=== PATIENT | female | born 1995 | race Caucasian/White ===

== ENCOUNTER 2016-12-30 14:40 | Emergency (ER) | payer SELFPAY ==
[~2016-12-30] VITALS: Ht 162.6 cm; Wt 88.8 kg
[2016-12-30] MEDS ORDERED: PRENATAL TABLE1 EAC3 PO (15:58)
[2016-12-30 17:34] LABS: HEMATOCRIT 36.4 % (36.0-46.0); MCH 30.5 PG (29.0-34.0); MCHC 34.6 G/DL (30.0-36.0); MCV 88.1 FL (83-99); MEAN PLAT.VOLUME 11.3 uM^3 (9.5-12.4); PLATELET COUNT 259 K/uL (156-360); RBC DIS.WIDTH-CV 12.7 % (11.8-14.6); RBC DIS.WIDTH-SD 40.9 % (39-53); RED BLOOD COUNT 4.13 M/uL (3.80-5.20)
[2016-12-30 17:39] LABS: ADD MIUA? NO; BILIRUBIN NEGATIVE; BLOOD NEGATIVE; COLOR YELLOW ((YELLOW)); GLUCOSE (STRIP) NEGATIVE; KETONES 20; LEUKOCYTES NEGATIVE; NITRITE NEGATIVE; PROTEIN (STRIP) NEGATIVE; SPECIFIC GRAVITY 1.011 (1.000-1.030); UCUL ADDED? NO; UROBILINOGEN 0.2 MG/DL (0.2-1.0)
[2016-12-30 17:49] LABS: CHLORIDE 105 mEq/L (99-109); POTASSIUM 3.7 mEq/L (3.7-5.4); SODIUM 139 mEq/L (136-147)
[2016-12-30 17:51] LABS: GLUCOSE 77 mg/dL (70-99)
[2016-12-30 17:52] LABS: ANION GAP 10 MEQ/L (2-14)
[2016-12-30 17:53] LABS: TOTAL BILIRUBIN 0.3 mg/dL (0.0-1.0)
[2016-12-30 17:54] LABS: ALKALINE PHOSPHATASE 67 IU/L (3-129)
[2016-12-30 17:55] LABS: GFR ESTIMATE (CALCULATED) > 59 mL/min/
[2016-12-30 17:56] LABS: UREA NITROGEN (BUN) 5 mg/dL (9-23)
[2016-12-30 18:23] LABS: QUANTITATIVE HCG 74617.4 MIU/ML
[2016-12-30 18:45] VITALS: BP 136/77
== END 2016-12-30 18:46 | disposition home or self-care (01) ==
LOC: EME 14:40 → RME 14:40
PROVIDERS: Physician Assistant
DX: O20.8 Other hemorrhage in early pregnancy (principal); O99.511 Diseases of the respiratory system complicating pregnancy, first trimester; J06.9 Acute upper respiratory infection, unspecified; O21.9 Vomiting of pregnancy, unspecified; R42 Dizziness and giddiness; Z3A.12 12 weeks gestation of pregnancy
CPT/HCPCS: 76801; 80053; 81003; 84702; 85027; 99281; 99283

== ENCOUNTER 2017-01-26 16:26 | Emergency (ER) | payer SELFPAY ==
[~2017-01-26] VITALS: Ht 162.6 cm; Wt 88.4 kg
[~2017-01-26 16:26] MED LIST: PRENATAL TABLE1 EAC3 PO
[2017-01-26 18:51] LABS: HEMATOCRIT 34.6 % (36.0-46.0); MCH 30.5 PG (29.0-34.0); MCHC 34.7 G/DL (30.0-36.0); MEAN PLAT.VOLUME 11.1 uM^3 (9.5-12.4); PLATELET COUNT 191 K/uL (156-360); RBC DIS.WIDTH-CV 13.3 % (11.8-14.6); RBC DIS.WIDTH-SD 43.6 % (39-53); RED BLOOD COUNT 3.93 M/uL (3.80-5.20); WHITE BLOOD COUNT 8.6 K/uL (4.1-10.2)
[2017-01-26 18:59] LABS: ADD MIUA? YES; BILIRUBIN NEGATIVE; BLOOD NEGATIVE; COLOR YELLOW ((YELLOW)); GLUCOSE (STRIP) NEGATIVE; KETONES 20; LEUKOCYTES NEGATIVE; NITRITE NEGATIVE; PROTEIN (STRIP) NEGATIVE; SPECIFIC GRAVITY 1.006 (1.000-1.030); UROBILINOGEN 0.2 MG/DL (0.2-1.0)
[2017-01-26 18:59] LABS: CHLORIDE 101 mEq/L (99-109); POTASSIUM 3.5 mEq/L (3.7-5.4); SODIUM 133 mEq/L (136-147)
[2017-01-26 19:01] LABS: GLUCOSE 83 mg/dL (70-99)
[2017-01-26 19:03] LABS: ANION GAP 11 MEQ/L (2-14)
[2017-01-26 19:05] LABS: GFR ESTIMATE (CALCULATED) > 59 mL/min/
[2017-01-26 19:06] LABS: UREA NITROGEN (BUN) 5 mg/dL (9-23)
[2017-01-26 19:13] LABS: BACTERIA RARE /HPF; EPITHELIAL CELLS 2+ /HPF; MUCUS NONE SEEN /LPF; RED BLOOD CELLS 0-5 /HPF (0-5); UCUL ADDED? NO; WHITE BLOOD CELLS 0-5 /HPF (0-5)
[2017-01-26 19:32] LABS: QUANTITATIVE HCG 35902.4 MIU/ML
[2017-01-26 19:53] LABS: TROP-I INTERPRETATION NEGATIVE; TROPONIN-I < 0.01 ng/mL (0.0-0.30)
[2017-01-26 22:23] VITALS: BP 123/82
== END 2017-01-26 22:29 | disposition home or self-care (01) ==
LOC: EME 16:26 → RME 16:26
PROVIDERS: Physician Assistant
DX: O99.512 Diseases of the respiratory system complicating pregnancy, second trimester (principal); J06.9 Acute upper respiratory infection, unspecified; O26.892 Other specified pregnancy related conditions, second trimester; R00.0 Tachycardia, unspecified; Z3A.15 15 weeks gestation of pregnancy; J45.909 Unspecified asthma, uncomplicated
CPT/HCPCS: 71020; 71275; 80048; 81003; 84484; 84702; 85027; 85379; 93005; 99281; 99285; J2405; J7030

== ENCOUNTER 2017-05-20 14:51 | Outpatient (CLI) | payer SELFPAY ==
[~2017-05-20] VITALS: Ht 162.6 cm; Wt 90.7 kg
[2017-05-20 15:26] VITALS: BP 119/76
[2017-05-20 15:58] LABS: APPEARANCE SL.HAZY ((CLEAR)); BILIRUBIN NEGATIVE; BLOOD NEGATIVE; COLOR YELLOW ((YELLOW)); GLUCOSE (STRIP) NEGATIVE; KETONES NEGATIVE; LEUKOCYTES NEGATIVE; NITRITE NEGATIVE; PROTEIN (STRIP) NEGATIVE; SPECIFIC GRAVITY 1.024 (1.000-1.030)
[2017-05-20 16:07] LABS: BACTERIA RARE /HPF; EPITHELIAL CELLS 1+ /HPF; MUCUS TRACE /LPF; RED BLOOD CELLS 0-5 /HPF (0-5); UCUL ADDED? NO; WHITE BLOOD CELLS 0-5 /HPF (0-5)
[2017-05-20 16:41] LABS: AMPHETAMINE NEGATIVE (500 ng/mL); BARBITURATES NEGATIVE (200 ng/mL); BENZODIAZEPINES NEGATIVE (150 ng/mL); BUPRENORPHINE NEGATIVE (10 ng/mL); COCAINE NEGATIVE (150 ng/mL); METHADONE NEGATIVE (200 ng/mL); METHAMPHETAMINE NEGATIVE (500 ng/mL); OPIATES (MORPHINE) NEGATIVE (100 ng/mL); OXYCODONE NEGATIVE (100 ng/mL); PHENCYCLIDINE NEGATIVE (25 ng/mL); PROPOXYPHENE NEGATIVE (300 ng/mL); THC CANNABINOIDS NEGATIVE (50 ng/mL); TRICYCLIC ANTIDEPRESSANTS NEGATIVE (300 ng/mL)
[2017-05-20 18:12] LABS: CANDIDA DNA PROBE NEGATIVE; GARDNERELLA DNA PROBE POSITIVE; TRICHOMONAS DNA PROBE NEGATIVE
[2017-05-21 09:13] LABS: SOURCE SWAB
== END 2017-05-20 17:55 | disposition home or self-care (01) ==
LOC: LDRP-OP 14:51 → 2WEST 14:53
PROVIDERS: Advanced Practice Midwife; Obstetrics & Gynecology
DX: O99.89 Other specified diseases and conditions complicating pregnancy, childbirth and the puerperium (principal); N94.89 Other specified conditions associated with female genital organs and menstrual cycle; M54.5 Low back pain; O09.33 Supervision of pregnancy with insufficient antenatal care, third trimester; Z3A.32 32 weeks gestation of pregnancy
CPT/HCPCS: 59025; 81003; 87480; 87491; 87510; 87591; 87660; G0378

== ENCOUNTER 2017-07-21 20:29 | Inpatient (IN) | payer OTHER ==
[2017-07-21 20:47] VITALS: BP 124/84
[2017-07-21 21:35] LABS: HEMOGLOBIN 10.4 G/DL (11.9-15.5); MCH 27.9 PG (29.0-34.0); MCHC 32.5 G/DL (30.0-36.0); MCV 85.8 FL (83-99); PLATELET COUNT 171 K/uL (156-360); RBC DIS.WIDTH-CV 14.7 % (11.8-14.6); RBC DIS.WIDTH-SD 45.7 % (39-53); RED BLOOD COUNT 3.73 M/uL (3.80-5.20); WHITE BLOOD COUNT 12.5 K/uL (4.1-10.2)
[2017-07-21 21:57] LABS: GLUCOSE 83 mg/dL (70-99)
[2017-07-21 22:05] LABS: AMPHETAMINE NEGATIVE (500 ng/mL); BARBITURATES NEGATIVE (200 ng/mL); BENZODIAZEPINES NEGATIVE (150 ng/mL); BUPRENORPHINE NEGATIVE (10 ng/mL); COCAINE NEGATIVE (150 ng/mL); METHADONE NEGATIVE (200 ng/mL); METHAMPHETAMINE NEGATIVE (500 ng/mL); OPIATES (MORPHINE) NEGATIVE (100 ng/mL); OXYCODONE NEGATIVE (100 ng/mL); PHENCYCLIDINE NEGATIVE (25 ng/mL); PROPOXYPHENE NEGATIVE (300 ng/mL); THC CANNABINOIDS NEGATIVE (50 ng/mL); TRICYCLIC ANTIDEPRESSANTS NEGATIVE (300 ng/mL)
[2017-07-21 22:44] LABS: GROUP B STREP NEGATIVE (NEGATIVE)
[2017-07-21 23:03] VITALS: BP 128/78
[2017-07-21 23:18] LABS: SOURCE URINE
[2017-07-21 23:23] LABS: APPEARANCE CLEAR ((CLEAR)); BILIRUBIN NEGATIVE; BLOOD NEGATIVE; COLOR STRAW ((YELLOW)); GLUCOSE (STRIP) NEGATIVE; KETONES NEGATIVE; LEUKOCYTES NEGATIVE; NITRITE NEGATIVE; PROTEIN (STRIP) NEGATIVE; SPECIFIC GRAVITY 1.004 (1.000-1.030); UCUL ADDED? NO; UROBILINOGEN 0.2 MG/DL (0.2-1.0)
[2017-07-21 23:48] LABS: ALBUMIN 3.7 g/dL (3.2-4.8); CHLORIDE 106 mEq/L (99-109); POTASSIUM 4.2 mEq/L (3.7-5.4); SODIUM 140 mEq/L (136-147)
[2017-07-21 23:51] LABS: GLUCOSE 83 mg/dL (70-99); TOTAL PROTEIN 6.6 g/dL (6.4-8.3)
[2017-07-21 23:53] LABS: TOTAL BILIRUBIN 0.3 mg/dL (0.0-1.0)
[2017-07-21 23:54] LABS: ALKALINE PHOSPHATASE 246 IU/L (3-129)
[2017-07-21 23:55] LABS: CREATININE 0.7 mg/dL (0.6-1.3); GFR ESTIMATE (CALCULATED) > 59 mL/min/; UREA NITROGEN (BUN) 7 mg/dL (9-23)
[2017-07-21 23:56] LABS: AST (GOT) 14 IU/L (2-34)
[2017-07-21 23:57] LABS: ALT (GPT) 11 IU/L (3-49)
[2017-07-22] VITALS (17 sets, daily range): BP systolic 109–138; BP diastolic 58–94
[2017-07-22 10:44] LABS: HEMOGLOBIN A1c (GLYCOHEMOGLOB) 4.9 % (Below 5.7)
[2017-07-22] MEDS ORDERED: ENDOCET 5-3251 EACH PO (20:21)
[2017-07-22] MEDS ORDERED: IBUPROFEN800 MG PO (20:21)
[2017-07-23] VITALS (8 sets, daily range): BP systolic 110–125; BP diastolic 55–67
[2017-07-23 07:46] LABS: BASOPHIL (%) 0.1 % (0-1); EOSINOPHIL (%) 0 % (0-5); HEMATOCRIT 26.7 % (36.0-46.0); HEMOGLOBIN 8.9 G/DL (11.9-15.5); LYMPHOCYTE (%) 5.1 % (15-42); LYMPHOCYTE COUNT 1.1 K/uL (1.0-2.8); MCH 28.3 PG (29.0-34.0); MCHC 33.3 G/DL (30.0-36.0); MCV 84.8 FL (83-99); MONOCYTE (%) 4.5 % (3-12); NEUTROPHIL (%) 89.3 % (45-76); NEUTROPHIL COUNT 18.9 K/uL (1.8-6.4); PLATELET COUNT 173 K/uL (156-360); RBC DIS.WIDTH-CV 14.7 % (11.8-14.6); RBC DIS.WIDTH-SD 45.2 % (39-53); RED BLOOD COUNT 3.15 M/uL (3.80-5.20); WHITE BLOOD COUNT 21.2 K/uL (4.1-10.2)
[2017-07-23 13:35] LABS: CHLAMYDIA TRACHOMATIS NEGATIVE; NEISSERIA GONORRHOEAE NEGATIVE
[2017-07-24 11:26] VITALS: BP 128/72
== END 2017-07-25 14:56 | disposition home or self-care (01) | DRG 766 ==
LOC: LDRP-OP 20:29 → 2WEST 20:31 → LDRP-OP 08-12 22:23
PROVIDERS: Nurse Practitioner; Obstetrics & Gynecology Gynecology
PROC: 10D00Z1 Extraction of Products of Conception, Low, Open Approach (ICD-10-PCS; principal; 2017-07-21)
DX: O48.0 Post-term pregnancy (principal); Z3A.41 41 weeks gestation of pregnancy; Z37.0 Single live birth; O62.2 Other uterine inertia
CPT/HCPCS: 76815; 76818; 80053; 81003; 82947; 83036; 85025; 85027; 87491; 87591; 87653; G0378; J0595; J0690; J1100; J2274; J2405; J7120; S0020

== ENCOUNTER 2017-07-28 20:59 | Emergency (ER) | payer OTHER ==
[~2017-07-28] VITALS: Ht 162.6 cm; Wt 92.7 kg
[~2017-07-28 20:59] MED LIST changes: +ENDOCET 5-3251 EACH PO; +IBUPROFEN800 MG PO
[2017-07-28 22:12] LABS: HEMATOCRIT 28.8 % (36.0-46.0); HEMOGLOBIN 9.3 G/DL (11.9-15.5); MCH 27.8 PG (29.0-34.0); MCHC 32.3 G/DL (30.0-36.0); RBC DIS.WIDTH-CV 14.7 % (11.8-14.6); RBC DIS.WIDTH-SD 46.2 % (39-53); RED BLOOD COUNT 3.35 M/uL (3.80-5.20); WHITE BLOOD COUNT 15.8 K/uL (4.1-10.2)
[2017-07-28 22:25] LABS: PLATELET COUNT 355 K/uL (156-360)
[2017-07-28 22:40] LABS: ALBUMIN 3.6 G/DL (3.2-4.8); CHLORIDE 104 MEQ/L (99-109); POTASSIUM 3.8 MEQ/L (3.7-5.4); SODIUM 139 MEQ/L (136-147); TOTAL BILIRUBIN 0.3 MG/DL (0.0-1.0)
[2017-07-28 22:46] LABS: ALKALINE PHOSPHATASE 139 IU/L (3-129); ALT (GPT) 6 IU/L (3-49); AST (GOT) 10 IU/L (2-34); CREATININE 0.6 MG/DL (0.6-1.3); GFR ESTIMATE (CALCULATED) > 59 mL/min/; GLUCOSE 94 mg/dL (70-99); TOTAL PROTEIN 7.4 G/DL (6.4-8.3); UREA NITROGEN (BUN) 8 mg/dL (9-23)
[2017-07-28 23:00] LABS: APPEARANCE CLEAR ((CLEAR)); BILIRUBIN NEGATIVE; BLOOD LARGE; COLOR YELLOW ((YELLOW)); GLUCOSE (STRIP) NEGATIVE; KETONES NEGATIVE; LEUKOCYTES LARGE; NITRITE NEGATIVE; PROTEIN (STRIP) NEGATIVE; SPECIFIC GRAVITY 1.006 (1.000-1.030); UROBILINOGEN 0.2 MG/DL (0.2-1.0)
[2017-07-28 23:02] LABS: BACTERIA RARE /HPF; EPITHELIAL CELLS RARE /HPF; MUCUS NONE SEEN /LPF; RED BLOOD CELLS 15-20 /HPF (0-5); WHITE BLOOD CELLS 20-30 /HPF (0-5)
[2017-07-28 23:04] LABS: QUANTITATIVE HCG 29.3 MIU/ML
[2017-07-29 00:57] VITALS: BP 124/79
== END 2017-07-29 01:18 | disposition home or self-care (01) ==
LOC: EME 20:59
PROVIDERS: Physician Assistant
DX: O90.89 Other complications of the puerperium, not elsewhere classified (principal); E86.0 Dehydration; R42 Dizziness and giddiness; R07.81 Pleurodynia; O92.29 Other disorders of breast associated with pregnancy and the puerperium; R00.0 Tachycardia, unspecified
CPT/HCPCS: 71275; 80053; 81003; 84702; 85027; 87086; 99281; 99285; J7030